=== PATIENT | male | born 1975 | race Caucasian/White ===

== ENCOUNTER 2016-09-21 09:25 | Emergency (ER) | payer MEDICAID ==
[2016-09-21 09:33] VITALS: TEMP 98.1; BMI 33.5
[2016-09-21] MEDS ORDERED: SODIUM CHLORIDE 0.9% 3 ML FLUSH FLUSH PRN (09:41)
[2016-09-21 10:01] LABS: AUTOMATED BASOPHIL 0.9 % (0-2); AUTOMATED EOSINOPHIL 3.1 % (0-5); AUTOMATED LYMPH 35.4 % (17-44); AUTOMATED MONOCYTE 7.2 % (3-10); AUTOMATED NEUTROPHIL 53.4 % (45-76); MPV 8.8 fL (7.4-10.4)
[2016-09-21 10:06] LABS: LEUKOCYTES/URINE NEG (NEGATIVE); NITRITE/URINE NEG (NEGATIVE); RBC/URINE 0-2 (0-2); URINE OCCULT BLOOD NEG (NEG/TRACE); WBC/URINE 0-2 (0-2)
[2016-09-21] MEDS ORDERED: ONDANSETRON HCL 4 MG/2 ML VIAL IV ONE (10:08)
[2016-09-21] MEDS ORDERED: MORPHINE 4 MG/ML INJECTION IV ONE (10:08)
--- NOTE | 2016-09-21 10:21 | EDPRACDOC ---
- General Information Chief Complaint: Male Urogenital Problems Stated Complaint: KIDNEY PAIN Time Seen by Provider: 09/21/16 09:40 Information Source: Patient Mode Of Arrival: Car Home Medications: Home Medications Atenolol/Chlorthalidone [Atenolol-Chlorthalidone Tab (100mg/25mg)] 1 tab PO DAILY 03/14/16 Glipizide [Glucotrol] 10 mg PO DAILY(KRAIG) 03/14/16 Aspirin (Enteric Coated) [Ecotrin] 81 mg PO DAILY 09/21/16 Ketoprofen 75 mg PO TID #20 capsule 09/21/16 Ondansetron [Zofran Odt] 4 mg PO Q6H #20 tab.rapdis 09/21/16 Oxycodone Immediate Release [Oxycodone Immediate Release (OxyIR)] 5 mg PO Q6H PRN #15 tab 09/21/16 Allergies/Adverse Reactions: Allergies Allergy/AdvReac Type Severity Reaction Status Date / Time No Known Allergies Allergy Verified 09/21/16 09:29 - History of Present Illness Onset: 5 days HPI: PT C/O RT FLANK AND RLQ ABD PAIN THAT IS DULL AND ACHING FOR 4-5 DAYS, NO N/V/D OR URINARY PROBLEMS AT THIS TIME. Pain Location: Reports: RLQ, Flank (RT) Pain Context: Reports: Spontaneous Pain Severity: Moderate Pain Quality: Reports: Aching (DULL) Pain Radiation: Reports: Other (RLQ) Adult Abdominal History: Reports: Urolithiasis Modifying Factors: improves with: Position, Movement Associated Signs & Symptoms: Reports: Nausea Oral Intake: Normal Urinary Output: Normal ED Past Medical History - History Reviewed Yes Nurses notes reviewed and agree except as marked Travel Outside of [place] in the Last 3 Months?: No - Patient Medical History Cardiac History: Reports: Hypertension, Hypercholesterolemia GI/ History: Reports: Kidney Stones Psychological History: Denies: Depression Systemic History: Reports: Diabetes - Social Medical History Smoking Status: Heavy tobacco smoker (5 or more cigarettes/day or daily pipe/ cigar) ETOH: None Substance Abuse: None Lives With: Spouse Lives In: Home EDM Review of Systems - Review of Systems ROS Negative Except as Marked: Yes All systems reviewed and were negative except as marked Constitutional: No Symptoms Reported. negative: Fever, Chills, Weakness, Fatigue, Loss of Appetite Eyes: No Symptoms Reported. negative: Redness, Blurred Vision, Double Vision, Discharge, Pain, Light Sensitive, Photophobia Ears: No Symptoms Reported. negative: Pain, Hearing Loss, Drainage, Ear Pulling Throat: No Symptoms Reported. negative: Pain, Swelling Nose: No Symptoms Reported. negative: Congestion, Bleeding, Discharge, Injection, Swelling, Deformity, Ecchymosis, Tender, Abrasion, Laceration Mouth: No Symptoms Reported. negative: Pain, Drooling Respiratory: No Symptoms Reported. negative: Cough, Brassy Cough, Barky Cough, Shortness of Breath, Wheezing, Hemoptysis Cardiovascular: No Symptoms Reported. negative: Chest Pain, Palpitations, Syncope, Edema, Orthopnea, PND, Skin Mottling, Cyanosis Gastrointestinal: Nausea, Pain. negative: Constipation, Diarrhea, Formula Intolerance, Melena, Vomiting Genitourinary: No Symptoms Reported. negative: Dysuria, Hematuria, Frequency, Discharge, Bleeding, Testicular Pain, Neurological: No Symptoms Reported. negative: Headache, Dizziness, Seizure, Numbness, Weakness, Speech Difficulty, Gait Difficulty Musculoskeletal: No Symptoms Reported. negative: Neck, Chestwall, Ribs, Back, Shoulder, Arm, Elbow, Forearm, Wrist, Hand, Pelvis, Hip, Femur, Knee, Leg, Ankle , Foot Integumentary: No Symptoms Reported. negative: Itching, Rash, Bruising, Wound Allergic/Immunologic: No Symptoms Reported. negative: Hives, Itching Hematologic: No Symptoms Reported. negative: Lymphadenopathy, Easy Bruising, Easy Bleeding Endocrine: No Symptoms Reported. negative: Weight Gain, Weight Loss Psychiatric: No Symptoms Reported. negative: Anxiety, Depression, Hallucinations, Insomnia, Suicidal - Physical Exam Constitutional: Alert (Awake), No apparent distress Oriented to: Time, Person, Place Last recorded Vital Signs: Last Vital Signs Temp 98.1 F 09/21/16 09:29 Pulse 79 09/21/16 11:36 Resp 18 09/21/16 11:36 BP 157/84 09/21/16 11:36 Pulse Ox 95 09/21/16 11:36 Oxygen Pulse Oxygen Saturation 95 O2 Device Room Air Oxygen Flow Rate Fraction of Inspired Oxygen ( FIO2) - HEENT Head: Normal ( normocephalic) Eye Exam: Normal (PERRL, EOMI, Sclera white) Oropharynx: Normal (Pharynx:Moist without exudate,Gums-no swelling) Tympanic Membrane: Normal ENT EAC: Normal TMJ: Normal Nose: No Symptoms Reported (septum midline) Neck: Normal (FROM, trachea at midline) - Respiratory/Cardiovascular Respiratory: Normal - CTA (BBS clear to auscultation without adventitious sounds ) Cardiovascular: Normal (RRR without murmur, gallop or rub) - GI Auscultation: Normal (NABS) Palpation: Normal (Soft,No rebound or guarding, non distended) Tenderness: Mild, Moderate, RLQ, Rebound (MILD) Brown's Sign: Negative - Bladder: Normal - Musculoskeletal Back: Normal (Non-Tender) Extremities: Normal (Normal tone, Pulses 2+ No cyanosis or edema, FROM) - Integumentary Skin: Normal, Warm, Dry Lymphatics: Normal (no adenopathy) - Neurologic Memory Impaired: Normal Motor Function: Normal (Normal tone, Pulses 2+ No cyanosis or edema, FROM) Cranial Nerve: Normal (CN II-X11 intact sensation, strength 5/5) Cerebellar: Normal Mood Description: Normal Perception: Normal - Differential Diagnosis Appendicitis, Constipation, Diverticulitis, Urolithiasis, UTI - Results 09/21/16 09:55 09/21/16 10:50 WBC 5.9 xk/uL (3.8-10.8) 09/21/16 09:55 RBC 5.56 xM/uL (4.70-6.10) 09/21/16 09:55 Hgb 16.7 g/dL (14.0-18.0) 09/21/16 09:55 Hct 48.8 % (42-52) 09/21/16 09:55 MCV 88 fL (80-94) 09/21/16 09:55 MCH 29.9 pg (27-32) 09/21/16 09:55 MCHC 34.1 g/dl (33-36) 09/21/16 09:55 RDW 13.2 % (11.5-14.5) 09/21/16 09:55 Plt Count 175 xk/uL (130-400) 09/21/16 09:55 MPV 8.8 fL (7.4-10.4) 09/21/16 09:55 Neut % (Auto) 53.4 % (45-76) 09/21/16 09:55 Lymph % (Auto) 35.4 % (17-44) 09/21/16 09:55 [place] % (Auto) 7.2 % (3-10) 09/21/16 09:55 Eos % (Auto) 3.1 % (0-5) 09/21/16 09:55 Baso % (Auto) 0.9 % (0-2) 09/21/16 09:55 Absolute Neuts (auto) 3.13 xk/uL (1.7-8.2) 09/21/16 09:55 Absolute Lymphs (auto) 2.07 xk/uL (0.65-4.75) 09/21/16 09:55 Sodium 140 mEq/L (137-146) 09/21/16 10:50 Potassium TNP 09/21/16 10:50 Chloride 104 mEq/L (98-107) 09/21/16 10:50 Carbon Dioxide 30 mMOL/L (22-33) 09/21/16 10:50 Anion Gap 10 mEq/L (8-16) 09/21/16 10:50 BUN 11 MG/DL (9-20) 09/21/16 10:50 Creatinine 0.70 MG/DL (0.66-1.25) 09/21/16 10:50 Estimated GFR (MDRD) > 60 mL/min (>=60) 09/21/16 10:50 Glucose 152 mg/dL (70-99) H 09/21/16 10:50 Calculated Osmolality 271 MOs/Kg (270-290) 09/21/16 10:50 Calcium 9.0 MG/DL (8.4-10.2) 09/21/16 10:50 Corrected Calcium 9.2 MG/DL (8.4-10.2) 09/21/16 10:50 Total Bilirubin 1.0 MG/DL (0.2-1.3) 09/21/16 10:50 AST TNP 09/21/16 10:50 ALT TNP 09/21/16 10:50 Alkaline Phosphatase TNP 09/21/16 10:50 Total Protein 7.4 G/DL (6.3-8.2) 09/21/16 10:50 Albumin 3.8 G/DL (3.5-5.0) 09/21/16 10:50 Urine Color Yellow 09/21/16 09:35 Urine Clarity Clear 09/21/16 09:35 Urine pH 6.0 (5.0-8.0) 09/21/16 09:35 Ur Specific [place] 1.025 (1.003-1.035) 09/21/16 09:35 Urine Protein 1+ (NEG/TRACE) H 09/21/16 09:35 Urine Glucose (UA) Trace (NEGATIVE) 09/21/16 09:35 Urine Ketones Neg (NEGATIVE) 09/21/16 09:35 Urine Occult Blood Neg (NEG/TRACE) 09/21/16 09:35 Urine Nitrite Neg (NEGATIVE) 09/21/16 09:35 Urine Bilirubin Neg (NEGATIVE) 09/21/16 09:35 Urine Urobilinogen 2 MG/DL (0-1) H 09/21/16 09:35 Ur Leukocyte Esterase Neg (NEGATIVE) 09/21/16 09:35 Urine RBC 0-2 (0-2) 09/21/16 09:35 Urine WBC 0-2 (0-2) 09/21/16 09:35 Ur Epithelial Cells Occ 09/21/16 09:35 Urine Bacteria Few (NEG/FEW) 09/21/16 09:35 Urine Mucus Mod (NEG/OCC) H 09/21/16 09:35 Lab Results 09/21/16 09/21/16 09/21/16 10:50 09:55 09:35 WBC 5.9 RBC 5.56 Hgb 16.7 Hct 48.8 MCV 88 MCH 29.9 MCHC 34.1 RDW 13.2 Plt Count 175 MPV 8.8 Neut % (Auto) 53.4 Lymph % (Auto) 35.4 [place] % (Auto) 7.2 Eos % (Auto) 3.1 Baso % (Auto) 0.9 Absolute Neuts (auto) 3.13 Absolute Lymphs (auto) 2.07 Sodium 140 Potassium TNP Chloride 104 Carbon Dioxide 30 Anion Gap 10 BUN 11 Creatinine 0.70 Estimated GFR (MDRD) > 60 Glucose 152 H Calculated Osmolality 271 Calcium 9.0 Corrected Calcium 9.2 Total Bilirubin 1.0 AST TNP ALT TNP Alkaline Phosphatase TNP Total Protein 7.4 Albumin 3.8 Urine Color Yellow Urine Clarity Clear Urine pH 6.0 Ur Specific [place] 1.025 Urine Protein 1+ H Urine Glucose (UA) Trace Urine Ketones Neg Urine Occult Blood Neg Urine Nitrite Neg Urine Bilirubin Neg Urine Urobilinogen 2 H Ur Leukocyte Esterase Neg Urine RBC 0-2 Urine WBC 0-2 Ur Epithelial Cells Occ Urine Bacteria Few Urine Mucus Mod H - Diagnostic Imaging CT URO Image interpreted by: Radiologist 09/21/16 11:00 IMPRESSION: 1. Tiny punctate nonobstructive calcified calculi are noted bilateral kidney. No hydronephrosis or hydroureter. 2. No hydronephrosis or hydroureter. 3. No pericecal inflammation. Status post appendectomy. 4. Limited assessment of urinary bladder which is empty. Bilateral distal ureter is unremarkable. 5. No small bowel obstruction. No ascites or free air. 6. Minimal degenerative changes lower thoracic spine. Decision Time to Discharge: 12:05 - Departure Disposition: Home Condition: Stable Final Diagnosis: Nephrolithiasis Abdominal pain Qualifiers: Abdominal location: right lower quadrant Qualified Code(s): R10.31 - Right lower quadrant pain Instructions: Non-pharmacological Pain Management Therapies for Adults (GEN), Abdominal Pain (ED) Education/Counseling Given To: Patient, Family Member Education/Counseling Given Regarding: Diagnosis, Treatment, Prognosis, Follow Up Referrals: Sweta Ricardo NP [Primary Care Provider] - One Week Julio Nash MD [Staff Physician] - One Week Prescriptions: New Ketoprofen 75 mg PO TID #20 capsule Ondansetron [Zofran Odt] 4 mg PO Q6H #20 tab.rapdis Oxycodone Immediate Release [Oxycodone Immediate Release (OxyIR)] 5 mg PO Q6H PRN #15 tab PRN Reason: Pain No Action Glipizide [Glucotrol] 10 mg PO DAILY(KRAIG) Atenolol/Chlorthalidone [Atenolol-Chlorthalidone Tab (100mg/25mg)] 1 tab PO DAILY Aspirin (Enteric Coated) [Ecotrin] 81 mg PO DAILY Additional Instructions: RETURN FOR WORSE OR DIFFERENT SYMPTOMS. FOLLOW WE DISCUSSED WITH MANAGER [facility]
--- NOTE | 2016-09-21 10:49 | DIRPT ---
CLINICAL DATA: Right lower quadrant pain, right flank pain EXAM: CT ABDOMEN AND PELVIS WITHOUT CONTRAST TECHNIQUE: Multidetector CT imaging of the abdomen and pelvis was performed following the standard protocol without IV contrast. COMPARISON: and 04/01/2012 FINDINGS: The lung bases are unremarkable. Sagittal images of the spine are unremarkable. Mild posterior disc bulge at L4-L5 and L5-S1 level. There is mild fatty infiltration of the liver. No intrahepatic biliary ductal dilatation. No calcified gallstones are noted within gallbladder. No aortic aneurysm. Unenhanced pancreas, spleen and adrenal glands are unremarkable. There is punctate nonobstructive calcified calculus in upper pole of the right kidney measures 1.5 mm. Punctate nonobstructive calcified calculus in upper pole of the left kidney measures 1 mm. No hydronephrosis or hydroureter. No calcified ureteral calculi are noted bilaterally. No small bowel obstruction. No ascites or free air. No adenopathy. The patient is status post appendectomy. The terminal ileum is unremarkable. No pericecal inflammation. Bilateral distal ureter is unremarkable. The urinary bladder is empty limiting its assessment. Small nonspecific bilateral inguinal lymph nodes are noted. No destructive bony lesions are noted within pelvis. IMPRESSION: 1. Tiny punctate nonobstructive calcified calculi are noted bilateral kidney. No hydronephrosis or hydroureter. 2. No hydronephrosis or hydroureter. 3. No pericecal inflammation. Status post appendectomy. 4. Limited assessment of urinary bladder which is empty. Bilateral distal ureter is unremarkable. 5. No small bowel obstruction. No ascites or free air. 6. Minimal degenerative changes lower thoracic spine. Electronically Signed By: Javad Nance M.D. On: 09/21/2016 10:46
[2016-09-21] MEDS ORDERED: Pharmacy Review for Metformin - IV Contrast Given SCH (11:00)
[2016-09-21 11:06] LABS: BLOOD UREA NITROGEN 11 MG/DL (9-20); CALC CORRECTED 9.2 MG/DL (8.4-10.2); CALCULATED OSMOLALITY 271 MOs/Kg (270-290); CHLORIDE 104 mEq/L (98-107); GLUCOSE 152 mg/dL (70-99); SODIUM LEVEL 140 mEq/L (137-146); TOTAL PROTEIN 7.4 G/DL (6.3-8.2)
[2016-09-21 12:33] VITALS: BP 156/86; PULSE 73
[2016-09-21] MEDS ORDERED: SODIUM CHLORIDE 0.9% 3 ML FLUSH FLUSH SCH (18:00)
== END 2016-09-21 12:30 | disposition home or self-care (01) ==
LOC: ED 09:25
DX: N20.0 Calculus of kidney (principal)
CPT/HCPCS: 36415; 74176; 80053; 81001; 85025; 96374; 96375; 99284; J2270; J2405